=== PATIENT | male | born 1995 | race Caucasian/White ===

== ENCOUNTER 2021-09-08 14:13 | Emergency (ER) | payer MEDICAID ==
[~2021-09-08] VITALS: Ht 180.3 cm; Wt 85.9 kg
[2021-09-08 15:31] VITALS: BP 122/68
== END 2021-09-08 15:32 | disposition home or self-care (01) ==
LOC: EMS 14:30
DX: S60.222A Contusion of left hand, initial encounter (principal); X58.XXXA Exposure to other specified factors, initial encounter; Y93.89 Activity, other specified; Y92.89 Other specified places as the place of occurrence of the external cause; Y99.8 Other external cause status
CPT/HCPCS: 99283